=== PATIENT | female | born 1985 | race Two or more races ===

== ENCOUNTER 2017-04-27 22:51 | Emergency (ER) | payer OTHER ==
[~2017-04-27] VITALS: Ht 175.3 cm; Wt 75.0 kg
[2017-04-27] MEDS ORDERED: ZIPRASIDONE 20 MG INJ IM ONE (23:01)
[2017-04-28] MEDS ORDERED: ZIPRASIDONE 20 MG INJ IM ONE
[2017-04-28] MEDS ORDERED: PLEASE ENTER HEIGHT AND WEIGHT MC SCH (00:30)
[2017-04-28] MEDS ORDERED: PLEASE ENTER ALLERGIES MC SCH ×2 (00:30)
== END 2017-04-28 02:38 | disposition home or self-care (01) ==
LOC: ED 04-28 02:30
DX: F15.121 Other stimulant abuse with intoxication delirium (principal); Z72.9 Problem related to lifestyle, unspecified; R44.3 Hallucinations, unspecified
CPT/HCPCS: 96372; 99283; J3486